=== PATIENT | female | born 1980 | race Caucasian/White ===

== ENCOUNTER 2020-06-02 15:39 | Emergency (ER) | payer BC, OTHER ==
[2020-06-02 17:07] LABS: Urine Blood NEGATIVE (NEG); Urine Glucose NEGATIVE (NEG); Urine Protein 1+ (NEG); Urine Specific Gravity >1.030 (1.005-1.030); Urine pH 5.5 (5.0-7.0)
--- NOTE | 2020-06-02 17:17 | RAD REPORT ---
EXAM DESCRIPTION: RAD - Chest Single View - 06/02/2020 5:11 pm CLINICAL HISTORY: CHEST PAIN Chest pain. COMPARISON: No comparisons FINDINGS: Portable technique limits examination quality. The lungs are grossly clear. The heart is normal in size. No displaced fractures. IMPRESSION: No acute intrathoracic process suspected.
[2020-06-02 17:19] LABS: Barbiturates NEGATIVE (NEGATIVE); Benzodiazepines NEGATIVE (NEGATIVE); Cocaine NEGATIVE (NEGATIVE); METHAMPHETAM POSITIVE (NEGATIVE); Methadone NEGATIVE (NEGATIVE); Opiates NEGATIVE (NEGATIVE); Phencyclidine NEGATIVE (NEGATIVE); THC Cannibis NEGATIVE (NEGATIVE)
[2020-06-02 17:26] LABS: Absolute Lymphocytes (CBC) 1.9 K/uL (0.7-4.9); Basophils % 0.6 % (0-1.3); Hematocrit 39.3 % (36.0-45.0); Lymphocytes % 25.8 % (15.3-44.8); MPV 7.9 fL (7.6-11.3); RBC Red Blood Cell Count 4.36 M/uL (3.86-4.86)
[2020-06-02] MEDS ORDERED: NA CHLORIDE 0.9% 1,000 ML ONE (18:22)
[2020-06-02 19:33] LABS: Protime INR 1.06
[2020-06-02 19:48] LABS: ALT/SGPT 15 U/L (12-78); AST/SGOT 14 U/L (15-37); Albumin 3.5 g/dL (3.4-5.0); Alkaline Phosphatase 77 U/L (45-117); BUN Blood Urea Nitrogen 7 mg/dL (7-18); Bicarbonate 24 mmol/L (21-32); Bilirubin Direct < 0.1 mg/dL (0-0.2); Bilirubin Total 0.3 mg/dL (0.2-1.0); Glucose Level 84 mg/dL (74-106); NT PRO-BNP 32 pg/mL (<125); Potassium 3.3 mmol/L (3.5-5.1); Protein, Total 6.9 g/dL (6.4-8.2); Sodium Level 142 mmol/L (136-145); Troponin (Emerg Dept Use Only) < 0.02 ng/mL (0.0-0.045)
[2020-06-02] MEDS ORDERED: CYCLOBENZAPRINE 10 MG TAB ONE (20:37)
[2020-06-02] MEDS ORDERED: KETOROLAC 30 MG/ML INJ ONE (20:37)
--- NOTE | 2020-06-02 22:29 | EDPHYS ---
Physician Documentation [facility] Name: Fariba Viera Age: 39 yrs Sex: Female : 1980 Arrival Date: 06/02/2020 Time: 15:47 Bed 18 Private MD: ED Physician Shin Escalante HPI: 06/02 16:35 This 39 yrs old Female presents to ER via Ambulatory with complaints of Chest pm1 pain. 16:35 The patient or guardian reports chest pain that is located primarily in the anterior pm1 aspect of right upper chest and anterior aspect of left upper chest. Onset: this morning. The pain does not radiate. Associated signs and symptoms: Pertinent positives: dizziness, one episode of diarrhea and vomiting this AM. Shortness of breath with chest pain this AM at onset. No further shortness of breath now, Pertinent negatives: cough, Fever. The chest pain is described as sharp. Duration: The patient or guardian reports a single episode, that is still ongoing. Modifying factors: The symptoms are alleviated by nothing. the symptoms are aggravated by palpation of area. Severity of pain: in the emergency department the pain is unchanged. The patient has not experienced similar symptoms in the past. The patient has not recently seen a physician. 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 - Social history:: Smoking status: Patient denies any tobacco usage or history of. Patient/guardian denies using alcohol, street drugs, tobacco products. ROS: 16:35 Constitutional: Negative for fever, chills, and weight loss, Neck: Negative for injury, pm1 pain, and swelling. 16:35 Respiratory: Negative for shortness of breath, cough, wheezing, and pleuritic chest pain, Back: Negative for injury and pain, MS/Extremity: Negative for injury and deformity, Skin: Negative for injury, rash, and discoloration. 16:35 Cardiovascular: Positive for chest pain, Negative for edema, palpitations. 16:35 Abdomen/GI: Positive for Abdominal cramping with diarrhea and vomiting this AM, Negative for constipation. 16:35 Neuro: Positive for dizziness. Exam: 16:35 Constitutional: This is a well developed, well nourished patient who is awake, alert, pm1 and in no acute distress. Head/Face: Normocephalic, atraumatic. Eyes: Pupils equal round and reactive to light, extra-ocular motions intact. Lids and lashes normal. Conjunctiva and sclera are non-icteric and not injected. Cornea within normal limits. Periorbital areas with no swelling, redness, or edema. ENT: Nares patent. No nasal discharge, no septal abnormalities noted. Tympanic membranes are normal and external auditory canals are clear. Oropharynx with no redness, swelling, or masses, exudates, or evidence of obstruction, uvula midline. Mucous membranes moist. Neck: Trachea midline, no thyromegaly or masses palpated, and no cervical lymphadenopathy. Supple, full range of motion without nuchal rigidity, or vertebral point tenderness. No Meningismus. 16:35 Cardiovascular: Regular rate and rhythm with a normal S1 and S2. No gallops, murmurs, or rubs. Normal PMI, no JVD. No pulse deficits. Respiratory: Lungs have equal breath sounds bilaterally, clear to auscultation and percussion. No rales, rhonchi or wheezes noted. No increased work of breathing, no retractions or nasal flaring. Abdomen/GI: Soft, non-tender, with normal bowel sounds. No distension or tympany. No guarding or rebound. No evidence of tenderness throughout. Back: No spinal tenderness. No costovertebral tenderness. Full range of motion. Skin: Warm, dry with normal turgor. Normal color with no rashes, no lesions, and no evidence of cellulitis. MS/ Extremity: Pulses equal, no cyanosis. Neurovascular intact. Full, normal range of motion. 16:35 Chest/axilla: Inspection: normal, Palpation: tenderness, that is moderate, of the anterior aspect of right upper chest and anterior aspect of left upper chest, that totally reproduces the patient's complaints. 16:35 Neuro: Exam negative for acute changes, focal neuro deficits, Orientation: is normal, Mentation: is normal, Motor: is normal, moves all fours, Sensation: is normal, no obvious gross deficits. Vital Signs: 15:59 BP 116 / 83; Pulse 110; Resp 18; Temp 98.4; Pulse Ox 100% ; Pain 8/10; ll1 17:22 BP 122 / 86; Pulse 100; Resp 18; Temp 97.6(TE); Pulse Ox 100% on R/A; mh5 18:30 BP 117 / 86; Pulse 89; Resp 13; Pulse Ox 100% ; ah 19:30 BP 123 / 70; Pulse 87; Resp 15; Pulse Ox 95% ; ah 20:30 BP 116 / 86; Pulse 84; Resp 17; Pulse Ox 96% ; ah 21:30 BP 128 / 88; Pulse 93; Resp 16; Pulse Ox 96% ; ah 22:15 BP 118 / 77; Pulse 75; Resp 16; Pulse Ox 96% ; ll1 22:45 BP 118 / 83; Pulse 84; Resp 17; Pain 4/10; ll1 MDM: 16:43 Patient medically screened. pm1 20:15 Data reviewed: vital signs. Data interpreted: Pulse oximetry: on room air is 100 %. pm1 Interpretation: normal. 22:27 Counseling: I had a detailed discussion with the patient and/or guardian regarding: the pm1 historical points, exam findings, and any diagnostic results supporting the discharge/admit diagnosis, lab results, radiology results, the need for outpatient follow up, to return to the emergency department if symptoms worsen or persist or if there are any questions or concerns that arise at home. 06/02 16:35 Order name: Basic Metabolic Panel; Complete Time: 20:14 pm1 06/02 16:35 Order name: CBC with Diff; Complete Time: 18:11 pm1 06/02 16:35 Order name: LFT's; Complete Time: 20:14 pm1 06/02 16:35 Order name: Magnesium; Complete Time: 20:14 pm1 06/02 16:35 Order name: NT PRO-BNP; Complete Time: 20:14 pm1 06/02 16:35 Order name: PT-INR; Complete Time: 19:41 pm1 06/02 16:35 Order name: Troponin (emerg Dept Use Only); Complete Time: 20:14 pm1 06/02 16:35 Order name: XRAY Chest (1 view); Complete Time: 17:21 pm1 06/02 16:36 Order name: UDS; Complete Time: 17:21 pm1 06/02 16:57 Order name: Urine Dipstick--Ancillary (enter results); Complete Time: 17:21 em1 06/02 16:57 Order name: Urine --Ancillary (enter results); Complete Time: 17:21 em06/02 16:35 Order name: EKG; Complete Time: 16:36 pm1 06/02 16:35 Order name: Cardiac monitoring; Complete Time: 17:20 pm06/02 16:35 Order name: EKG - Nurse/Tech; Complete Time: 17:20 pm06/02 16:35 Order name: IV Saline Lock; Complete Time: 17:45 pm1 06/02 16:35 Order name: Labs collected and sent; Complete Time: 17:20 pm06/02 16:35 Order name: O2 Per Protocol; Complete Time: 17:45 pm06/02 16:35 Order name: O2 Sat Monitoring; Complete Time: 17:45 pm06/02 16:36 Order name: Urine Dipstick-Ancillary (obtain specimen); Complete Time: 16:56 pm06/02 16:36 Order name: Urine Test (obtain specimen); Complete Time: 16:56 pm1 Administered Medications: 18:28 Drug: NS 0.9% 1000 ml Route: IV; Rate: 1000 ml; Site: right antecubital; 21:08 Follow up: Response: No adverse reaction; IV Status: Completed infusion 20:38 Drug: TORadol - Ketorolac 15 mg Route: IVP; Site: right antecubital; 21:57 Follow up: Response: No adverse reaction 20:38 Drug: Flexeril 10 mg Route: PO; 21:57 Follow up: Response: No adverse reaction Disposition: 06/03 05:44 Co-signature as Attending Physician, Shin Escalante MD I agree with the assessment and iftikhar plan of care. Disposition: 06/02/20 22:28 Discharged to Home. Impression: Chest pain, unspecified. - Condition is Stable. - Discharge Instructions: Nonspecific Chest Pain. - Prescriptions for Cyclobenzaprine 10 mg Oral Tablet - take 1 tablet by ORAL route every 8 hours As needed; 30 tablet. Diclofenac Sodium 75 mg Oral Tablet Sustained Release - take 1 tablet by ORAL route 2 times per day; 30 tablet. - Medication Reconciliation Form, Thank You Letter, Antibiotic Education, Prescription Opioid Use form. - Follow up: Emergency Department; When: As needed; Reason: Worsening of condition. Follow up: Private Physician; When: 2 - 3 days; Reason: Recheck today's complaints, Continuance of care, Re-evaluation by your physician. - Problem is new. - Symptoms have improved. Signatures: Dispatcher [employer] EDMS Shin Escalante MD MD cha Marinas, Patrick, NP SENIOR PRODUCT ANALYST pm1 Saira Rojas RN RN Jessica Green RN RN ll1 Corrections: (The following items were deleted from the chart) 06/02 22:46 22:28 06/02/2020 22:28 Discharged to Home. Impression: Chest pain, unspecified. ll1 Condition is Stable. Forms are Medication Reconciliation Form, Thank You Letter, Antibiotic Education, Prescription Opioid Use. Follow up: Emergency Department; When: As needed; Reason: Worsening of condition. Follow up: Private Physician; When: 2 - 3 days; Reason: Recheck today's complaints, Continuance of care, Re-evaluation by your physician. Problem is new. Symptoms have improved. pm1
--- NOTE | 2020-06-02 22:29 | ER ---
Nurse's Notes [facility] Name: Fariba Viera Age: 39 yrs Sex: Female : 1980 Arrival Date: 06/02/2020 Time: 15:47 Bed 18 Private MD: Diagnosis: Chest pain, unspecified Presentation: 06/02 15:59 Chief complaint: Patient states: Awoke at 6 am with urgent need to have diarrhea stool. ll1 Started having N/V, cold sweats, near syncope. Chest tightness and tenderness since. + lightheaded and blurred vision since. + dry mouth now. Coronavirus screen: Proceed with normal triage. Patient denies a cough. Patient denies shortness of breath or difficulty breathing. Patient denies measured and/or subjective temperature greater than 100.4F prior to today's visit. Patient denies travel on a cruise ship or to a country the [facility] currently lists as an affected area. Patient denies contact with known and/or suspected case of COVID-19. Ebola Screen: Patient denies travel to an Ebola-affected area in the 21 days before illness onset. Initial Sepsis Screen: Does the patient meet any 2 criteria? HR > 90 bpm. Risk Assessment: Do you want to hurt yourself or someone else? Patient reports no desire to harm self or others. Onset of symptoms was June 02, 2020. 15:59 Method Of Arrival: Ambulatory [facility] 15:59 Acuity: SONY 2 ss 22:01 Initial Sepsis Screen: Does the patient have a suspected source of infection? No. Patient's initial sepsis screen is negative. 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 - Social history:: Smoking status: Patient denies any tobacco usage or history of. Patient/guardian denies using alcohol, street drugs, tobacco products. Screenin:01 Abuse screen: Denies threats or abuse. Nutritional screening: No deficits noted. Tuberculosis screening: No symptoms or risk factors identified. Fall Risk None identified. Assessment: 16:45 General: Appears in no apparent distress. Behavior is calm, cooperative, appropriate ah for age. Pain: Complains of pain in chest Pain does not radiate. Neuro: Level of Consciousness is awake, alert, obeys commands, Oriented to person, place, time, situation, Appropriate for age Reports a syncopal episode. Cardiovascular: Reports chest pain, Capillary refill < 3 seconds Patient's skin is warm and dry. Respiratory: Airway is patent Respiratory effort is even, unlabored. GI: Reports diarrhea, nausea. Derm: Skin is intact, is healthy with good turgor. 17:45 Reassessment: Patient and/or family updated on plan of care and expected duration. Pain ah level reassessed. Patient is alert, oriented x 3, equal unlabored respirations, skin warm/dry/pink. 18:45 Reassessment: Patient and/or family updated on plan of care and expected duration. Pain ah level reassessed. Patient is alert, oriented x 3, equal unlabored respirations, skin warm/dry/pink. 19:30 Reassessment: Patient and/or family updated on plan of care and expected duration. Pain ah level reassessed. Patient is alert, oriented x 3, equal unlabored respirations, skin warm/dry/pink. Pt tolerated fluids well. She states that she feels a little bit better. 20:30 Reassessment: Patient and/or family updated on plan of care and expected duration. Pain ah level reassessed. Patient is alert, oriented x 3, equal unlabored respirations, skin warm/dry/pink. Pt continues to have pain. Provider orders medications. Toradol and flexeril given at this time. No other needs voiced at this time. 21:30 Reassessment: No changes from previously documented assessment. Patient and/or family ll1 updated on plan of care and expected duration. Pain level reassessed. Patient is alert, oriented x 3, equal unlabored respirations, skin warm/dry/pink. 23:05 Pain: Pain began gradually. ll1 Vital Signs: 15:59 BP 116 / 83; Pulse 110; Resp 18; Temp 98.4; Pulse Ox 100% ; Pain 8/10; ll1 17:22 BP 122 / 86; Pulse 100; Resp 18; Temp 97.6(TE); Pulse Ox 100% on R/A; mh5 18:30 BP 117 / 86; Pulse 89; Resp 13; Pulse Ox 100% ; ah 19:30 BP 123 / 70; Pulse 87; Resp 15; Pulse Ox 95% ; ah 20:30 BP 116 / 86; Pulse 84; Resp 17; Pulse Ox 96% ; ah 21:30 BP 128 / 88; Pulse 93; Resp 16; Pulse Ox 96% ; ah 22:15 BP 118 / 77; Pulse 75; Resp 16; Pulse Ox 96% ; ll1 22:45 BP 118 / 83; Pulse 84; Resp 17; Pain 4/10; ll1 ED Course: 15:47 Patient arrived in ED. fj1 16:02 Triage completed. ll1 16:03 Arm band placed on Patient notified of wait time. ll1 16:34 Derick Downs NP is PHCP. pm1 16:35 Shin Escalante MD is Attending Physician. pm1 16:52 Saira Rojas, RN is Primary Nurse. ah 17:11 XRAY Chest (1 view) In Process Unspecified. EDCA 17:18 Initial lab(s) drawn, by ct, sent to lab. Urine collected: clean catch specimen, 5 cloudy. Inserted saline lock: 22 gauge in left antecubital area, using aseptic technique. Blood collected. IV discontinued, Pressure dressing applied. 17:20 Basic Metabolic Panel Sent. 5 17:20 CBC with Diff Sent. 5 17:20 LFT's Sent. 5 17:20 Magnesium Sent. 5 17:20 NT PRO-BNP Sent. 5 17:20 PT-INR Sent. 5 17:21 Troponin (emerg Dept Use Only) Sent. [facility] 18:28 Inserted saline lock: 22 gauge in right antecubital area, using aseptic technique. 22:01 Patient has correct armband on for positive identification. Placed in gown. Bed in low ah position. Call light in reach. Side rails up X 1. Pulse ox on. NIBP on. 22:45 No provider procedures requiring assistance completed. IV discontinued, intact, ll1 bleeding controlled, No redness/swelling at site. Pressure dressing applied. Patient maintains SpO2 saturation greater than 95% on room air. Administered Medications: 18:28 Drug: NS 0.9% 1000 ml Route: IV; Rate: 1000 ml; Site: right antecubital; 21:08 Follow up: Response: No adverse reaction; IV Status: Completed infusion 20:38 Drug: TORadol - Ketorolac 15 mg Route: IVP; Site: right antecubital; 21:57 Follow up: Response: No adverse reaction 20:38 Drug: Flexeril 10 mg Route: PO; 21:57 Follow up: Response: No adverse reaction Outcome: 22:28 Discharge ordered by MD. pm1 22:46 Patient left the ED. [facility] 22:46 Discharged to home via wheelchair. ll1 22:46 Condition: stable 22:46 Discharge instructions given to patient, Instructed on discharge instructions, follow up and referral plans. no drinking with medication, no driving heavy equipment, medication usage, Demonstrated understanding of instructions, follow-up care, medications, Prescriptions given X 2. Signatures: Dispatcher [employer] EDMS Anne Jewell RN RN Derick Downs NP RECEIVABLES SPECIALIST 1 Lenka Liu 5 Nav Nash 1 Saira Rojas RN RN Jessica Green RN RN ll1 Corrections: (The following items were deleted from the chart) 16:16 15:59 Acuity: SONY 3 1 18:13 18:05 BP 112 / 57; Pulse 113bpm; Resp 18bpm; Pulse Ox 96%; Temp 99.0F; ah 22:00 20:30 Reassessment: Patient and/or family updated on plan of care and expected ah duration. Pain level reassessed. Patient is alert, oriented x 3, equal unlabored respirations, skin warm/dry/pink.
[2020-06-02 23:18] VITALS: TEMP 97.6
[2020-06-02 23:22] VITALS: O2SAT 96
[2020-06-02 23:40] VITALS: BP 118/77
--- NOTE | 2020-06-03 12:11 | EKG ---
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
== END 2020-06-02 22:46 | disposition home or self-care (01) ==
LOC: ER 15:39
DX: R07.9 Chest pain, unspecified (principal); Z91.040 Latex allergy status
CPT/HCPCS: 96361; 93005; 85025; 80048; 36415; 83735; 81025; 85610; 80076; 80307 ×8; 81003; 84484; 83880; 71045; 96374; 99284; J7030

== ENCOUNTER 2022-10-26 20:30 | Observation (INO) | payer BC ==
[2022-10-26 21:21] LABS: Hematocrit 36.1 % (36.0-45.0); Lymphocytes % 21.7 % (15.3-44.8); MCV 88.5 fL (80-100); MPV 7.4 fL (7.6-11.3); RBC Red Blood Cell Count 4.08 M/uL (3.86-4.86)
[2022-10-26] MEDS ORDERED: ASPIRIN 81 MG CHEWABLE TABLET ONE (21:23)
[2022-10-26] MEDS ORDERED: NA CHLORIDE 0.9% 500 ML ONE (21:23)
[2022-10-26] MEDS ORDERED: NA CHLORIDE 0.9% 1,000 ML ONE (21:23)
[2022-10-26 21:36] LABS: Potassium 3.3 mmol/L (3.5-5.1); Troponin High Sensitivity 6.5 pg/mL (<58.9)
[2022-10-26 21:38] LABS: Urine Blood Trace-lysed (Negative); Urine Glucose Negative (Negative); Urine Protein Trace (Negative); Urine Specific Gravity >=1.030 (1.005-1.030); Urine pH 5.5 (5.0-7.0)
--- NOTE | 2022-10-26 21:51 | ER ---
Nurse's Notes [facility] Name: Fariba Viera Age: 41 yrs Sex: Female : 1980 Arrival Date: 10/26/2022 Time: 20:36 Bed 18 Private MD: Diagnosis: Chest pain, unspecified;Tachycardia, unspecified;Hypokalemia Presentation: 10/26 20:46 Chief complaint: Patient states: chest pain many hours, started midline chest but now jh5 is moving into the left chest and started moving down into left and my left arm feels heavy. Coronavirus screen: Vaccine status: Patient reports receiving the 2nd dose of the covid vaccine. Client denies travel out of the [place] in the last 14 days. Ebola Screen: Patient negative for fever greater than or equal to 101.5 degrees Fahrenheit, and additional compatible Ebola Virus Disease symptoms Patient denies exposure to infectious person. Patient denies travel to an Ebola-affected area in the 21 days before illness onset. Initial Sepsis Screen: Does the patient meet any 2 criteria? No. Patient's initial sepsis screen is negative. Does the patient have a suspected source of infection? No. Patient's initial sepsis screen is negative. Risk Assessment: Do you want to hurt yourself or someone else? Patient reports no desire to harm self or others. 20:46 Method Of Arrival: Ambulatory [facility] 20:46 Acuity: SONY 3 [facility] 10/27 00:56 Onset of symptoms was October 27, 2022. kd3 Triage Assessment: 10/26 20:49 General: Appears uncomfortable, well groomed, well developed, Behavior is calm, 5 cooperative, appropriate for age. Pain: Complains of pain in chest and left arm. Cardiovascular: Reports chest pain. 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 - Social history:: Smoking status: Patient denies any tobacco usage or history of. - Family history:: not pertinent. Screenin/07 00:55 Abuse screen: Denies threats or abuse. Denies injuries from another. Nutritional kd3 screening: No deficits noted. Tuberculosis screening: No symptoms or risk factors identified. Fall Risk IV access (20 points). Assessment: 00:56 Pain: Pain does not radiate. Pain began gradually. Neuro: Level of Consciousness is kd3 awake, alert, obeys commands, Oriented to person, place, time, situation. Cardiovascular: Patient's skin is warm and dry. 00:56 General: Appears in no apparent distress. Behavior is calm, cooperative. kd3 04:07 Reassessment: No changes from previously documented assessment. Patient and/or family kd3 updated on plan of care and expected duration. Pain level reassessed. Patient is alert, oriented x 3, equal unlabored respirations, skin warm/dry/pink. General: Appears sleeping in bed. Behavior is calm, cooperative. Vital Signs: 10/26 20:46 BP 136 / 97; Pulse 104; Resp 16; Temp 98.6; Pulse Ox 100% ; Weight 91.63 kg; Height 5 [facility] ft. 4 in. (162.56 cm); 12 00:23 BP 138 / 98; Pulse 78; Resp 16; Pulse Ox 99% on R/A; kd3 00:56 BP 117 / 85; Pulse 68; Resp 13; Pulse Ox 98% on R/A; kd3 04:07 BP 99 / 55; Pulse 69; Resp 13; Pulse Ox 99% on R/A; kd3 05:57 BP 113 / 67; Pulse 64; Resp 15; Pulse Ox 98% on R/A; kd3 12/ 20:46 Body Mass Index 34.67 (91.63 kg, 162.56 cm) [facility] ED Course: 10/26 20:36 Patient arrived in ED. bp1 20:49 Triage completed. jh5 20:49 Arm band placed on right wrist. jh5 21:00 Initial lab(s) drawn, by fl, sent to lab. EKG done, by ED staff, reviewed by Shin Escalante MD. Inserted saline lock: 20 gauge in right antecubital area, using aseptic technique. Blood collected. Patient maintains SpO2 saturation greater than 95% on room air. 21:01 Shin Escalante MD is Attending Physician. [facility] 21:16 Mariama Coppola, RN is Primary Nurse. kd3 21:31 Troponin HS Sent. kd3 21:31 Basic Metabolic Panel Sent. kd3 21:50 Roland Paredes MD is Hospitalizing Provider. [facility] 21:51 XRAY Chest (1 view) In Process Unspecified. EDMS 12 00:55 Patient has correct armband on for positive identification. Client placed on continuous kd3 cardiac and pulse oximetry monitoring. NIBP monitoring applied. 00:55 No provider procedures requiring assistance completed. kd3 05:57 Patient admitted, IV remains in place. kd3 Administered Medications: 10/26 21:31 Drug: Aspirin Chewable Tablet 162 mg Route: PO; kd3 10/27 00:59 Follow up: Response: No adverse reaction kd3 10/26 21:31 Drug: NS 0.9% 1000 ml Route: IV; Rate: 125 ml/hr; Site: right antecubital; kd3 10/27 00:59 Follow up: IV Status: Infusion continued kd3 10/26 21:31 Drug: NS 0.9% 500 ml Route: IV; Rate: bolus; Site: right antecubital; kd3 10/27 00:59 Follow up: IV Status: Completed infusion kd3 10/26 23:04 Drug: Lovenox (enoxaparin) 1 mg/kg Route: Sub-Q; Site: left lower abdomen; kd3 12 00:59 Follow up: Response: No adverse reaction kd3 10/26 23:04 Drug: Pepcid (famotidine) 20 mg Route: IVP; Site: right antecubital; kd3 12 00:59 Follow up: Response: No adverse reaction kd3 12 23:04 Drug: morphine 4 mg Route: IVP; Infused Over: 4 mins; Site: right antecubital; kd3 10/27 00:58 Follow up: Response: No adverse reaction; Pain is decreased kd3 10/26 23:04 Drug: Zofran (Ondansetron) 4 mg Route: IVP; Site: right antecubital; kd3 12 00:58 Follow up: Response: No adverse reaction kd3 00:07 Drug: Potassium Effervescent Tablet 50 mEq Route: PO; kd3 00:58 Follow up: Response: No adverse reaction kd3 00:11 Drug: Lopressor (metoprolol TARTRATE) 50 mg Route: PO; kd3 00:59 Follow up: Response: No adverse reaction; Blood pressure is lowered kd3 Medication: 00:56 VIS not applicable for this client. kd3 Outcome: 10/26 21:51 Decision to Hospitalize by Provider. iftikhar 10/27 05:56 Admitted to ER Hold. Please see [facility] for further documentation. kd3 Condition: stable Discharge instructions given to patient, family, Instructed on the need for admit, Demonstrated understanding of instructions, follow-up care. 10/29 12:20 Patient left the ED. jl7 Signatures: Dispatcher [employer] EDShin Adam MD MD cha Leal, Jahala RN RN jl7 Neha Oviedo Jessica, RN RN jh5 Mariama Coppola RN RN kd3
--- NOTE | 2022-10-26 21:51 | EDPHYS ---
Physician Documentation [facility] Name: Fariba Viera Age: 41 yrs Sex: Female : 1980 Arrival Date: 10/26/2022 Time: 20:36 Bed 18 Private MD: ED Physician Shin Escalante HPI: 10/26 21:45 This 41 yrs old Female presents to ER via Ambulatory with complaints of Chest iftikhar Pain > 30 y/o. 21:45 The patient or guardian reports chest pain that is located primarily in the substernal iftikhar area. Onset: today. The pain radiates to both arms. Associated signs and symptoms: Pertinent positives: nausea, shortness of breath. The chest pain is described as a pressure. Modifying factors: The symptoms are alleviated by nothing. the symptoms are aggravated by movement, walking. Severity of pain: At its worst the pain was mild moderate in the emergency department the pain has resolved. The patient has not experienced similar symptoms in the past. 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 - Social history:: Smoking status: Patient denies any tobacco usage or history of. - Family history:: not pertinent. ROS: 21:45 Constitutional: Negative for fever, chills, and weight loss, Eyes: Negative for injury, iftikhar pain, redness, and discharge, ENT: Negative for injury, pain, and discharge, Neck: Negative for injury, pain, and swelling, Abdomen/GI: Negative for abdominal pain, nausea, vomiting, diarrhea, and constipation, Back: Negative for injury and pain, : Negative for injury, bleeding, discharge, and swelling, MS/Extremity: Negative for injury and deformity, Skin: Negative for injury, rash, and discoloration, Neuro: Negative for headache, weakness, numbness, tingling, and seizure, Psych: Negative for depression, anxiety, suicide ideation, homicidal ideation, and hallucinations, Allergy/Immunology: Negative for hives, rash, and allergies, Endocrine: Negative for neck swelling, polydipsia, polyuria, polyphagia, and marked weight changes, Hematologic/Lymphatic: Negative for swollen nodes, abnormal bleeding, and unusual bruising. 21:45 Cardiovascular: Positive for chest pain, of the chest. 21:45 Respiratory: Positive for shortness of breath, at rest. Exam: 21:45 Constitutional: This is a well developed, well nourished patient who is awake, alert, iftikhar and in no acute distress. Head/Face: Normocephalic, atraumatic. Eyes: Pupils equal round and reactive to light, extra-ocular motions intact. Lids and lashes normal. Conjunctiva and sclera are non-icteric and not injected. Cornea within normal limits. Periorbital areas with no swelling, redness, or edema. ENT: Nares patent. No nasal discharge, no septal abnormalities noted. Tympanic membranes are normal and external auditory canals are clear. Oropharynx with no redness, swelling, or masses, exudates, or evidence of obstruction, uvula midline. Mucous membranes moist. Neck: Trachea midline, no thyromegaly or masses palpated, and no cervical lymphadenopathy. Supple, full range of motion without nuchal rigidity, or vertebral point tenderness. No Meningismus. Chest/axilla: Normal chest wall appearance and motion. Nontender with no deformity. No lesions are appreciated. Cardiovascular: Regular rate and rhythm with a normal S1 and S2. No gallops, murmurs, or rubs. Normal PMI, no JVD. No pulse deficits. Respiratory: Lungs have equal breath sounds bilaterally, clear to auscultation and percussion. No rales, rhonchi or wheezes noted. No increased work of breathing, no retractions or nasal flaring. Abdomen/GI: Soft, non-tender, with normal bowel sounds. No distension or tympany. No guarding or rebound. No evidence of tenderness throughout. Back: No spinal tenderness. No costovertebral tenderness. Full range of motion. Skin: Warm, dry with normal turgor. Normal color with no rashes, no lesions, and no evidence of cellulitis. MS/ Extremity: Pulses equal, no cyanosis. Neurovascular intact. Full, normal range of motion. Neuro: Awake and alert, GCS 15, oriented to person, place, time, and situation. Cranial nerves II-XII grossly intact. Motor strength 5/5 in all extremities. Sensory grossly intact. Cerebellar exam normal. Normal gait. Psych: Awake, alert, with orientation to person, place and time. Behavior, mood, and affect are within normal limits. 21:45 ECG was reviewed by the Attending Physician. Vital Signs: 20:46 BP 136 / 97; Pulse 104; Resp 16; Temp 98.6; Pulse Ox 100% ; Weight 91.63 kg; Height 5 jh5 ft. 4 in. (162.56 cm); 10/27 00:23 BP 138 / 98; Pulse 78; Resp 16; Pulse Ox 99% on R/A; kd3 00:56 BP 117 / 85; Pulse 68; Resp 13; Pulse Ox 98% on R/A; kd3 04:07 BP 99 / 55; Pulse 69; Resp 13; Pulse Ox 99% on R/A; kd3 05:57 BP 113 / 67; Pulse 64; Resp 15; Pulse Ox 98% on R/A; kd3 10/26 20:46 Body Mass Index 34.67 (91.63 kg, 162.56 cm) 5 MDM: 10/26 21:10 Patient medically screened. iftikhar 21:47 Differential diagnosis: abnormal EKG, acute myocardial infarction, coronary artery iftikhar disease congestive heart failure Cholelithiasis esophagitis, gastroesophageal reflux disease (GERD), hiatal hernia, pancreatitis, pulmonary embolus, stable angina, thoracic aortic disection, unstable angina. HEART Score: History: Slightly Suspicious (0), ECG: Non specific repolarization disturbance / LBTB / PM (1), Age: < or = 45 years (0), Risk Factors: > or = 3 Risk factors for atherosclerotic disease (2), [Hypercholesterolemia] [+ Family HX] [Obesity] Troponin: < or = 1 x Normal Limit (0). The patient was given aspirin in the Emergency Department. The patient's deep vein thrombosis risk score was calculated as follows: Total Score: 0. This patient was found to be at low risk for a deep vein thrombosis by using the Well's assessment criteria. The patient's pulmonary embolism risk score was calculated as follows: the patients heart rate is greater than 100 beats per minute (1.5 Pts) Total Score: 0-2 points. This patient was found to be at low risk for a pulmonary embolism by using the Well's assessment criteria. NATALIE Risk Score: 1 - Three or more CAD risk factors, TOTAL SCORE = 1. Data reviewed: vital signs, nurses notes, lab test result(s), EKG, radiologic studies, plain films. Data interpreted: bus monitor: rate is 104 beats/min, rhythm is regular, Pulse oximetry: on room air is 100 %. Test interpretation: by ED physician or midlevel provider: ECG, plain radiologic studies. Counseling: I had a detailed discussion with the patient and/or guardian regarding: the historical points, exam findings, and any diagnostic results supporting the discharge/admit diagnosis, lab results, radiology results, the need for further work-up and treatment in the hospital. 10/26 20:50 Order name: Basic Metabolic Panel; Complete Time: 22:53 [facility] 10/26 20:50 Order name: CBC with Diff; Complete Time: 21:44 [facility] 10/26 20:50 Order name: Troponin HS; Complete Time: 22:53 [facility] 10/26 21:38 Order name: Urine Dipstick-Ancillary; Complete Time: 21:44 [facility] 10/26 22:15 Order name: DD; Complete Time: 22:53 [facility] 10/26 22:16 Order name: SARS RAPID az1 10/26 22:26 Order name: NT PRO-BNP; Complete Time: 22:53 [facility] 10/26 22:32 Order name: Urine --Ancillary (enter results); Complete Time: 22:53 2 10/27 05:19 Order name: Troponin High Sensitivity [facility] 10/27 05:29 Order name: Comprehensive Metabolic Panel [facility] 10/27 05:29 Order name: Lipid Profile [facility] 10/27 05:29 Order name: T4 Free [facility] 10/27 05:29 Order name: Thyroid Stimulating Hormone [facility] 10/26 20:50 Order name: XRAY Chest (1 view); Complete Time: 22:26 [facility] 10/26 22:26 Order name: CT Chest For PE Angio iftikhar 10/26 22:53 Order name: US Extremity Venous W Compression Fabricio iftikhar 10/27 08:08 Order name: US EDNC 10/27 09:04 Order name: Troponin High Sensitivity [facility] 10/27 13:06 Order name: CT [facility] 10/28 02:59 Order name: Comprehensive Metabolic Panel [facility] 10/28 10:38 Order name: NM [facility] 10/29 05:53 Order name: Basic Metabolic Panel [facility] 10/26 20:50 Order name: EKG; Complete Time: 20:51 [facility] 10/26 20:50 Order name: Cardiac monitoring; Complete Time: 21:32 [facility] 10/26 20:50 Order name: EKG - Nurse/Tech; Complete Time: 20:57 [facility] 10/26 20:50 Order name: IV Saline Lock; Complete Time: 21:19 [facility] 10/26 20:50 Order name: Labs collected and sent; Complete Time: 21:19 [facility] 10/26 20:50 Order name: O2 Per Protocol; Complete Time: 21:32 [facility] 10/26 20:50 Order name: O2 Sat Monitoring; Complete Time: 21:32 [facility] 10/26 21:02 Order name: Urine Dipstick-Ancillary (obtain specimen); Complete Time: 21:38 iftikhar EC:45 Rate is 98 beats/min. Rhythm is regular. QRS [place] is Normal. SC interval is normal. QRS iftikhar interval is normal. QT interval is normal. No Q waves. T waves are Normal. No ST changes noted. Clinical impression: Normal ECG and No evidence of ischemia. Interpreted by me. Reviewed by me. Administered Medications: 21:31 Drug: Aspirin Chewable Tablet 162 mg Route: PO; 10/27 00:59 Follow up: Response: No adverse reaction 10/26 21:31 Drug: NS 0.9% 1000 ml Route: IV; Rate: 125 ml/hr; Site: right antecubital; 10/27 00:59 Follow up: IV Status: Infusion continued 10/26 21:31 Drug: NS 0.9% 500 ml Route: IV; Rate: bolus; Site: right antecubital; 10/27 00:59 Follow up: IV Status: Completed infusion 10/26 23:04 Drug: Lovenox (enoxaparin) 1 mg/kg Route: Sub-Q; Site: left lower abdomen; 10/27 00:59 Follow up: Response: No adverse reaction 10/26 23:04 Drug: Pepcid (famotidine) 20 mg Route: IVP; Site: right antecubital; 10/27 00:59 Follow up: Response: No adverse reaction 10/26 23:04 Drug: morphine 4 mg Route: IVP; Infused Over: 4 mins; Site: right antecubital; 10/27 00:58 Follow up: Response: No adverse reaction; Pain is decreased kd3 10/26 23:04 Drug: Zofran (Ondansetron) 4 mg Route: IVP; Site: right antecubital; kd3 10/27 00:58 Follow up: Response: No adverse reaction kd3 00:07 Drug: Potassium Effervescent Tablet 50 mEq Route: PO; kd3 00:58 Follow up: Response: No adverse reaction kd3 00:11 Drug: Lopressor (metoprolol TARTRATE) 50 mg Route: PO; kd3 00:59 Follow up: Response: No adverse reaction; Blood pressure is lowered kd3 Disposition Summary: 10/26/22 21:51 Hospitalization Ordered Hospitalization Status: Observation iftikhar Provider: Roland Paredes cha Condition: Stable iftikhar Problem: new iftikhar Symptoms: have improved iftikhar Bed/Room Type: Standard iftikhar Location: [facility] ER HOLD(10/26/22 21:53) bb Room Assignment: ERHOLD-(10/26/22 21:53) bb Diagnosis - Chest pain, unspecified iftikhar - Tachycardia, unspecified iftikhar - Hypokalemia iftikhar Forms: - Medication Reconciliation Form iftikhar - SBAR form iftikhar Signatures: Dispatcher [employer] EDMS Shin Escalante MD MD cha Ballard, Brenda RN RN Akosua Hines RN RN jh5 Mariama Coppola RN RN kd3 Corrections: (The following items were deleted from the chart) 10/26 21:53 21:51 Telemetry/MedSurg (observation) iftikhar bb 21:53 21:51 iftikhar bb 22:26 22:16 PROBNP+C.LAB.BRZ ordered. EDMS EDMS
--- NOTE | 2022-10-26 22:04 | RAD REPORT ---
EXAM DESCRIPTION: Joycelyn Single View10/26/2022 9:49 pm CLINICAL HISTORY: Chest pain COMPARISON: 2019 FINDINGS: The lungs appear clear of acute infiltrate. The heart is normal size IMPRESSION: No acute abnormalities displayed
[2022-10-26] MEDS ORDERED: FAMOTIDINE 20 MG/2 ML VIAL IV ONE (22:26)
[2022-10-26] MEDS ORDERED: ENOXAPARIN 100 MG/ML SYR SQ ONE (22:26)
[2022-10-26] MEDS ORDERED: ONDANSETRON 4 MG/2 ML VIAL ONE (22:26)
[2022-10-26] MEDS ORDERED: METOPROLOL TAR 50 MG TAB ONE (22:26)
[2022-10-26] MEDS ORDERED: MORPHINE 4 MG/ML SYR ONE (22:39)
[2022-10-26 22:42] LABS: Urine Specific Gravity/Preg >1.030 (1.005-1.030)
--- NOTE | 2022-10-26 23:10 | P.HP ---
Certification for Inpatient Patient admitted to: Observation With expected LOS: <2 Midnights Patient will require the following post-hospital care: None Practitioner: I am a practitioner with admitting privileges, knowledge of patient current condition, hospital course, and medical plan of care. Services: Services provided to patient in accordance with Admission requirements found in Title 42 Section 412.3 of the Code of Federal Regulations Patient History Date of Service: 10/26/22 Reason for admission: Chest pain History of Present Illness: 41-year-old female with history of GERD, hyperlipidemia presents the emergency department for chest pain. She reports the pain began earlier in the day while she was relaxing pain is described as tightness/aching across the chest and radiating down the left arm. She has a strong family history for heart disease at a young age. Her initial high-sensitivity troponin was 6.5. EKG was without STEMI criteria chest x-ray was unremarkable. ED provider reached out for admission for ACS rule out. D-dimer was added after further discussion with patient which was positive, CT PE protocol currently pending. - Past Medical/Surgical History -: Hyperlipidemia -: GERD -: Tubal ligation Psychosocial/ Personal History: Patient lives at home with family - Family History Father -: Heart disease (At a young age), Cancer - Social History Smoking Status: Never smoker Alcohol use: No CD- Drugs: No Caffeine use: Yes Place of Residence: Home Review of Systems 10-point ROS is otherwise unremarkable Cardiovascular: Chest Pain, Light Headedness Physical Examination - Physical Exam General: Alert, In no apparent distress, Oriented x3 HEENT: Atraumatic, PERRLA, Mucous membr. moist/pink, EOMI, Sclerae nonicteric Neck: Supple, 2+ carotid pulse no bruit, No LAD, Without JVD or thyroid abnormality Respiratory: Clear to auscultation bilaterally, Normal air movement Cardiovascular: Regular rate/rhythm, Normal S1 S2 Gastrointestinal: Normal bowel sounds, No tenderness Musculoskeletal: No tenderness Integumentary: No rashes Neurological: Normal speech, Normal strength at 5/5 x4 extr, Normal tone, Normal affect - Studies Laboratory Data (last 24 hrs) 10/26/22 21:00: WBC 9.10, Hgb 12.4, Hct 36.1, Plt Count 377 10/26/22 21:00: Sodium 136, Potassium 3.3 L, BUN 7, Creatinine 1.06, Glucose 97 Assessment and Plan - Plan Assessment: Chest pain rule out ACS/PE GERD Hyperlipidemia Plan: Chest pain rule out ACS/PE: Trend troponins, monitor on telemetry, cardiology consult in place. Patient given aspirin/therapeutic Lovenox in ED. CT PE protocol pending. GERD: Continue Protonix, as needed Tums. Hyperlipidemia: Continue home med. DVT PPX: Lovenox Code status: Full Discharge Plan: Home Plan to discharge in: 24 Hours - Advance Directives Does patient have a Living Will: No Does patient have a Durable POA for Healthcare: No - Code Status/Comfort Care Code Status Assessed: Yes (Full code) Critical Care: No Time Spent Managing Pts Care (In Minutes): 55
[2022-10-26] MEDS ORDERED: POTASSIUM 25 MEQ EFFERV TAB ONE (23:48)
[2022-10-27 00:56] LABS: SARS-CoV-2 Antigen Rapid Res Negative (Negative)
[2022-10-27] MEDS ORDERED: ONDANSETRON 4 MG/2 ML VIAL IV PRN (04:10)
[2022-10-27] MEDS ORDERED: CALCIUM CARBONATE CHEW 500MG TAB PO PRN (04:10)
[2022-10-27 05:28] LABS: Bilirubin Total 0.6 mg/dL (0.2-1.0); Potassium 4.6 mmol/L (3.5-5.1); Protein, Total 6.6 g/dL (6.4-8.2); Thyroid Stimulating Hormone 1.88 uIU/mL (0.360-3.740)
[2022-10-27] MEDS ORDERED: INFLUENZA VACCINE (for 6+ mo) 0.5 ML DOSE IMVAC ONE ×2 (08:00→11:06)
--- NOTE | 2022-10-27 08:08 | RAD REPORT ---
EXAM DESCRIPTION: USExtrem Venous W Compress Bil10/26/2022 11:31 pm CLINICAL HISTORY: Leg pain COMPARISON: none FINDINGS: The common femoral, superficial femoral, popliteal and posterior tibial veins bilaterally are compressible and demonstrate augmentation. Doppler demonstrates good flow. Grayscale, color and spectral analysis performed on all vessels IMPRESSION: No evidence of deep venous thrombosis involving either lower extremity.
[2022-10-27] MEDS ORDERED: PANTOPRAZOLE 40MG TABLET PO ONE (08:37)
[2022-10-27] MEDS ORDERED: ASPIRIN 81 MG CHEWABLE TABLET ONE (08:37)
[2022-10-27] MEDS ORDERED: ENOXAPARIN 40 MG/0.4 ML SQ ONE (08:38)
[2022-10-27] MEDS: ENOXAPARIN 40 MG/0.4 ML SQ SCH (08:45)
[2022-10-27] MEDS: ASPIRIN EC 81 MG TAB PO SCH (08:45)
[2022-10-27] MEDS: PANTOPRAZOLE 40MG TABLET PO SCH (08:45)
[2022-10-27] MEDS ORDERED: KETOROLAC 30 MG/ML INJ IV ONE (10:49)
[2022-10-27] MEDS ORDERED: CYCLOBENZAPRINE 10 MG TAB ONE (11:06)
[2022-10-27] MEDS ORDERED: KETOROLAC 30 MG/ML INJ ONE (11:06)
[2022-10-27] MEDS: CYCLOBENZAPRINE 10 MG TAB PO PRN (11:34)
--- NOTE | 2022-10-27 13:05 | RAD REPORT ---
EXAM DESCRIPTION: CT - Chest For Pe Angio - 10/26/2022 11:52 pm CLINICAL HISTORY: Cp. COMPARISON: None. TECHNIQUE: CTA of the chest was performed following intravenous administration of iodinated contrast . Axial soft tissue and lung window, and coronal and sagittal soft tissue window reconstructions were created and sent to PACS. 3D postprocessing was performed on an independent workstation, with images sent to PACS for subsequen t review. This exam was performed according to our departmental dose-optimization program, which includes autom ated exposure control, adjustment of the mA and/or kV according to patient size and/or use of iterati ve reconstruction technique. FINDINGS: Vascular: The pulmonary arteries are well-opacified to the segmental level. No CT evidence of acute pulmonary thromboembolism. No evidence of aortic aneurysm or dissection. Lungs and pleura: Left apex groundglass nodule measures 0.4 cm. No routine follow-up imaging is recom mended per Fleischner Society Guidelines. No pulmonary consolidation. No pleural effusion. No pneumot horax. Mediastinum and neck: No mediastinal lymphadenopathy by CT size criteria. Unremarkable appearance of the thyroid gland. Cardiac: No cardiomegaly or pericardial effusion. Abdomen: No significant upper abdominal abnormality identified. Musculoskeletal: No concerning osseous abnormality. IMPRESSION: 1. No CTA evidence of acute pulmonary thromboembolism. 2. No acute findings. Electronically signed by: Kerri Thibodeaux MD 10/26/2022 11:24 PM HOSPITALITY JOB TITLES Due to temporary technical issues with the PACS/Fluency reporting system, reports are being signed by the in house radiologists without review as a courtesy to insure prompt reporting. The interpreting radiologist is fully responsible for the content of the report.
[2022-10-27] MEDS: ATORVASTATIN 40 MG TAB PO SCH (21:00)
[2022-10-27] MEDS ORDERED: ATORVASTATIN 20 MG TAB ONE (21:28)
--- NOTE | 2022-10-27 21:39 | P.PN ---
Date of Service: 10/27/22 Subjective: no acute events overnight chest pain with some improvement, not resolved no new/worsening symptoms pain substernal, radiates to both arms ROS: A complete review of systems was performed and is negative except as mentioned above Physical Exam: Gen: NAD, AOx3 HEENT: normal conjunctiva, sclera anicteric CV: regular rate & rhythm, no edema Pulm: non-labored respirations, clear bilaterally Abd: soft, non-tender, non-distended MSK: chest pain reproducible with use of bilateral pectoralis muscles Skin: no rashes, no lesions Neuro: normal speech, normal affect, moves all extremities vitals reviewed Problem List Chest pain rule out ACS/PE GERD Hyperlipidemia trop negative x 2, continue to trend cardiology consulted - recommend stress test in AM echo ordered suspect pain is MSK in origin, reproducible when flexing pectoralis muscles and palpation +family history of CAD aspirin, statin continue home protonix ekg without ischemic changes VTE: lovenox Code: full Dispo: home, tomorrow after stress test Time Spent Managing Pts Care (In Minutes): 35
[2022-10-28 02:59] LABS: Bilirubin Total 0.3 mg/dL (0.2-1.0); Potassium 4.2 mmol/L (3.5-5.1); Protein, Total 6.6 g/dL (6.4-8.2)
--- NOTE | 2022-10-28 05:46 | EKG ---
Test Date: 2022-10-26 Test Time: 20:55:22 Sail Cutter: MEASUREMENT RESULTS: Intervals: Rate: 98 MI: 168 QRSD: 76 QT: 314 QTc: 400 Elwin: P: 70 MI: 168 QRS: 59 T: 53 INTERPRETIVE STATEMENTS: Normal sinus rhythm Normal ECG Compared to ECG 06/02/2020 16:09:28 Sinus tachycardia no longer present Myocardial infarct finding no longer present Electronically Signed On 10-28-22 05:44:47 VEHICLE DISMANTLER by Aaron Birmingham
[2022-10-28] MEDS ORDERED: PANTOPRAZOLE 40MG TABLET PO ONE (05:57)
[2022-10-28] MEDS: PANTOPRAZOLE 40MG TABLET PO SCH (06:03)
[2022-10-28 06:39] VITALS: BMI 35.3
--- NOTE | 2022-10-28 07:12 | ECHO ---
HEIGHT: 5 ft 4 in WEIGHT: 205 lb 14.588 oz DATE OF STUDY: 10/27/[address]: Dar Ulloa MD 2-DIMENSIONAL: YES M.MODE: YES DOPPLER: YES COLOR FLOW: YES TDS: PORTABLE: YES DEFINITY: BUBBLE STUDY: DIAGNOSIS: CHEST PAIN CARDIAC HISTORY: CATHERIZATION: NO SURGERY: NO PROSTHETIC VALVE: NO PACEMAKER: NO MEASUREMENTS (cm) DIASTOLIC (NORMALS) SYSTOLIC (NORMALS) IVSd 1.1 (0.6-1.2) LA Diam 2.6 (1.9-4.0) LVEF 65% LVIDd 4.2 (3.5-5.7) LVIDs 2.7 (2.0-3.5) %FS 36% LVPWd 1.2 (0.6-1.2) Ao Diam 2.9 (2.0-3.7) 2 DIMENSIONAL ASSESSMENT: RIGHT ATRIUM: NORMAL LEFT ATRIUM: NORMAL RIGHT VENTRICLE: NORMAL LEFT VENTRICLE: NORMAL TRICUSPID VALVE: NORMAL MITRAL VALVE: NORMAL PULMONIC VALVE: NORMAL AORTIC VALVE: NORMAL PERICARDIAL EFFUSION: NONE AORTIC ROOT: NORMAL LEFT VENTRICULAR WALL MOTION: NORMAL DOPPLER/COLOR FLOW: NORMAL COMMENTS: 1. NORMAL 2-DIMENSIONAL ECHOCARDIOGRAM WITH DOPPLER. TECHNOLOGIST: JOANNA ZUNIGA
[2022-10-28] MEDS ORDERED: REGADENOSON 0.4 MG/5 ML SYR IV ONE (07:35)
[2022-10-28] MEDS ORDERED: ASPIRIN 81 MG CHEWABLE TABLET ONE (08:54)
[2022-10-28] MEDS ORDERED: ENOXAPARIN 40 MG/0.4 ML SQ ONE (08:55)
[2022-10-28] MEDS: ENOXAPARIN 40 MG/0.4 ML SQ SCH (09:00)
[2022-10-28] MEDS: ASPIRIN EC 81 MG TAB PO SCH (09:00)
--- NOTE | 2022-10-28 10:37 | RAD REPORT ---
EXAM DESCRIPTION: NM - Rest Stress Cardiac Imaging - 10/28/2022 10:14 am CLINICAL HISTORY: Chest pain COMPARISON: None. TECHNIQUE: The patient was administered 9.6 mCi of Tc 99m Sestamibi prior to resting SPECT imaging o f the heart. The patient was then administered 29.1 mCi of Tc 99m Sestamibi following exercise or pha rmacologic stress. Multiplanar SPECT images were reviewed. FINDINGS: The end diastolic volume is 75 ml, the end systolic volume is 27 ml, and the ejection frac tion is 64 %. Moderate-sized focal defect is seen in the anterior wall near the apex on stress imaging with a moder ately large area of diminished stress activity in the inferior wall near the apex. Defects are genera lly matched on the rest sequencing. There may be some very minimal areas of frank-infarct ischemia. N o large areas of stress ischemia identifiable. IMPRESSION: Moderate-sized areas of scarring in the anterior and inferior wall near the apex. No large areas of stress ischemia seen. Minimal areas of frank-infarct ischemia cannot be excluded. End-diastolic volume and ejection fraction are normal range.
--- NOTE | 2022-10-28 14:38 | TREADPHA ---
DX: CHEST PAIN Date of Study: 10/28/2022 Ht: 5' 4 " Wt: 205 lb 14.588 oz Consulting Physician: KRISTIAN MEDICATIONS: ASPIRIN, LOVENOX HISTORY: 41 YEAR OLD FEMALE WITH COMPLIANTS OF CHEST PAIN. PATIENT STATES HISTORY OF HEART MURMUR. PATIENT STATES ALLERGY TO LATEX. PHYSICIAL EXAMINATION: RESTING B.P.: 128/70 RESTING H.R.: 82 RESTING EKG: NORMAL SINUS RHYTHM, WITHIN NORMAL LIMITS PROTOCOL: PHARMACOLOGIC EXERCISE TIME: 3:30 B.P. AT [place] STRESS: 197/65 IMPRESSION: LEXISCAN INJECTED. CARDIOLITE INJECTED. SEE NUCLEAR MEDICINE REPORT. PATIENT STATES SLIGHT HEAVINESS TO CHEST, SHORTNESS OF BREATH, AND DIZZINESS. PATIENT DENIES CHEST PAIN. NO SUPRAVENTRICULAR TACHYCARDIA, VENTRICULAR TACHYCARDIA, PREMATURE ATRIAL COMPLEXES, OR PREMATURE VENTRICULAR COMPLEXES NOTED. NO EKG CHANGES OF ISCHEMIA.
--- NOTE | 2022-10-28 23:55 | P.PN ---
Date of Service: 10/28/22 Subjective: chest pain continues, but with some improvement radiates to both arms at times ROS: A complete review of systems was performed and is negative except as mentioned above Physical Exam: Gen: NAD, AOx3 HEENT: normal conjunctiva, sclera anicteric CV: regular rate & rhythm, no edema Pulm: non-labored respirations, clear bilaterally Abd: soft, non-tender, non-distended MSK: mild discomfort reproducible using b/l pectoralis muscles Neuro: normal speech, normal affect, moves all extremities vitals reviewed Problem List Chest pain rule out ACS/PE GERD Hyperlipidemia trop negative x 3 echo normal cardiology consulted recommended stress test - done today - some areas of concern, most likely artifact, but patient has significant risk factors cardiology plans for cardiac cath tomorrow to further evaluate coronaries possibly MSK in origin, reproducible when flexing pectoralis muscles and palpation +family history of CAD aspirin, statin continue home protonix ekg without ischemic changes VTE: lovenox Code: full Dispo: home, tomorrow after cath Time Spent Managing Pts Care (In Minutes): 35
[2022-10-29] MEDS ORDERED: ATORVASTATIN 20 MG TAB ONE (00:45)
[2022-10-29] MEDS ORDERED: CYCLOBENZAPRINE 10 MG TAB ONE (00:45)
[2022-10-29] MEDS: CYCLOBENZAPRINE 10 MG TAB PO PRN (00:47)
[2022-10-29] MEDS: ATORVASTATIN 40 MG TAB PO SCH (00:48)
[2022-10-29 05:53] LABS: Potassium 3.9 mmol/L (3.5-5.1)
[2022-10-29] MEDS ORDERED: PANTOPRAZOLE 40MG TABLET PO ONE (06:14)
[2022-10-29] MEDS: PANTOPRAZOLE 40MG TABLET PO SCH (06:26)
[2022-10-29] MEDS: ENOXAPARIN 40 MG/0.4 ML SQ SCH (09:00)
[2022-10-29] MEDS: ASPIRIN EC 81 MG TAB PO SCH (09:00)
[2022-10-29] MEDS ORDERED: ASPIRIN EC 81 MG TAB PO ONE (09:15)
[2022-10-29] MEDS ORDERED: LIDOCAINE 1% 20 ML MDV ONE (10:36)
[2022-10-29] MEDS ORDERED: FENTANYL CITR 100 MCG/2 ML ONE (10:36)
[2022-10-29] MEDS ORDERED: HEPA 1000U/500MLS 2,000 UNIT/1,000 ML BAG IV ONE (10:36)
[2022-10-29] MEDS ORDERED: MIDAZOLAM HCL 2 MG/2 ML INJ ONE ×2 (10:37→12:41)
[2022-10-29] MEDS ORDERED: VERAPAMIL HCL 10 MG/4 ML VIAL IV ONE (10:37)
[2022-10-29] MEDS ORDERED: HEPARIN 5000 UNIT/ML 1 ML VIAL ONE (10:37)
[2022-10-29] MEDS ORDERED: CLOPIDOGREL 75 MG TABLET ONE (10:37)
[2022-10-29] MEDS ORDERED: HEPARIN 10,000 UNIT/10 ML VIAL IV ONE (10:37)
[2022-10-29] MEDS ORDERED: NITROGLYCERIN 100 MCG/ML SYR (for cath lab use only) IV ONE (10:38)
[2022-10-29] MEDS ORDERED: ATROPINE SULF 1 MG/10 ML SYR IV ONE (10:38)
[2022-10-29] MEDS ORDERED: NITROGLYCERIN/D5W 25 MG/250 ML BTL IV ONE (10:38)
[2022-10-29] MEDS ORDERED: TICAGRELOR 90 MG TABLET PO ONE (10:38)
[2022-10-29] MEDS ORDERED: NA CHLORIDE 0.9% 500 ML ONE (10:39)
[2022-10-29 16:45] VITALS: BP 128/94; TEMP 98
[2022-10-29 18:13] VITALS: O2SAT 99
--- NOTE | 2022-10-29 18:45 | OP ---
Date of Procedure: 10/29/2022 Surgeon: NADEEM NIEVES Procedures Performed: 1.Selective coronary angiogram. 2.Left heart catheterization. Indication: Unstable angina. Access: Right radial artery 6-Turkish closed with TR band. Complications: None. Estimated Blood Loss: Bleeding less than 10 mL. Anesthesia: Total sedation time was 20 minutes, used fentanyl and Versed. Description Of Procedure: After risks, benefits, and alternatives were explained, patient agreed to proceed and signed informed consent. The patient was brought into the cardiac catheterization labora tory and prepped and draped in usual sterile fashion. Then, I accessed right radial artery using ped iatric micropuncture kit and placed 6-Turkish Slender sheath and took 5-Turkish [place] 4 catheter into t he aortic root, engaged left main and right coronary artery, took standard views and the catheter was pushed over the wire into the LV, measured the LVEDP and pullback did not record any gradient. I th en removed the catheter and sheath and placed TR band with good hemostasis. Findings: 1.Left main is large and normal. 2.LAD: Moderate size and normal. Normal diagonal branches. 3.Left circumflex is normal and normal OM branches. 4.RCA has dominant circulation and normal. 5.Normal LVEDP between 5 and 10 mmHg. Conclusion: 1.Normal coronary arteries. 2.Normal LVEDP. Recommendations: Search for other causes of chest pain. SR/MODL Voice ID: [id number] Report ID: [id number]
--- NOTE | 2022-10-29 21:48 | PN ---
Date of Progress Note: 10/29/2022 Subjective: Seen at bedside, doing clinically well. Continues to have on and off chest pain with mi nimal exertion. Review of Systems: No nausea, vomiting, or diarrhea. She is having chest pain with activities. No dysuria, polyuria, o r urinary urgency. No skin rash. All other systems reviewed and they were negative. Physical Examination: Vital Signs: Reviewed. Head and Neck: Pupils are equal and reactive to light. Intact eye movements. No JVD. No cervical lymphadenopathy. Neck: Supple. Thyroid is not enlarged. Lungs: Clear to auscultation bilaterally. No rhonchi, wheezing, or crackles. No accessory muscle u se. Heart: Regular rate and rhythm. No extra sounds. Abdomen: Soft, nontender. Bowel sounds positive. No organomegaly. No masses or hernia. No rigidi ty or rebound. Extremities: No edema, clubbing, or cyanosis. Intact pulses. Skin: No rash. Neurologic: Alert, awake, and oriented x3. No acute focal deficits appreciated. Lymph Nodes: No cervical or axillary lymphadenopathy. Investigations: D-dimer was 914. CTA of the chest was negative for pulmonary embolism and coronary angiogram was totally normal. Assessment And Recommendations: Chest pain. CTA is negative for pulmonary embolism and coronary ang iogram was done today and she had normal coronary arteries. Her chest pain is not cardiac. This cou ld be related to the GI tract or chest wall muscles. No further cardiac workup is recommended and Cardiology will sign off on the case. The patient can be followed as an ou tpatient basis. SR/MODL Voice ID: [id number] Report ID: [id number]
--- NOTE | 2022-10-30 23:23 | CON ---
Date of Consultation: 10/27/2022 Reason For Consultation: Chest pain. History Of Present Illness: Ms. Viera is 41 and has a history of asthma, ADD, and gastroesophageal reflux disease. She has a very strong positive family history in her father and grandfather. She c lorenzo in with chest pain, substernal, radiating to the left shoulder with some nausea. No diaphoresis, PND, shortness of breath, palpitations, or syncope. The D-dimer was 114. Troponin was negative. Allergies: LATEX. Review of Systems: Negative. Social History: Negative. She sees Dr. Don. Family History: Very strongly positive for CAD in her dad and grandfather. Medications: At home include Singulair, Vyvanse, and Protonix. Physical Examination: Vital Signs: Stable, afebrile. HEENT: Negative. Neck: Supple with no bruit. Chest: Clear to auscultation and percussion. Cardiac: Regular rhythm and rate. No murmurs, gallops, or rubs. Abdomen: Benign. Extremities: No clubbing, cyanosis, or edema. Diagnostic Data: Chest x-ray is negative EKG is negative. D-dimer is . Troponin is negat elvis. Impression And Plan: This is a patient with many risk factors for coronary artery disease with stron g family history of heart disease and symptoms that are suggestive of coronary artery disease. Echoc ardiogram is pending. Lexiscan is pending. We will see what those show before making any further de cisions. Continue present regimen for now. KAJAL/OCLIN Voice ID: [id number] Report ID: [id number]
== END 2022-10-29 17:20 | disposition home or self-care (01) ==
LOC: ER 20:30 → ERHOLD 22:44 → 2ND 10-29 11:55
PROVIDERS: ADMIT Hospitalist; ATTEND Hospitalist
PROC: 4A023N7 Measurement of Cardiac Sampling and Pressure, Left Heart, Percutaneous Approach (ICD-10-PCS; principal; 2022-10-29)
PROC: B2011ZZ Plain Radiography of Multiple Coronary Arteries using Low Osmolar Contrast (ICD-10-PCS; 2022-10-29)
PROC: B2051ZZ Plain Radiography of Left Heart using Low Osmolar Contrast (ICD-10-PCS; 2022-10-29)
DX: R07.89 Other chest pain (principal); R00.0 Tachycardia, unspecified; E87.6 Hypokalemia; K21.9 Gastro-esophageal reflux disease without esophagitis; J45.909 Unspecified asthma, uncomplicated; E78.5 Hyperlipidemia, unspecified; F98.8 Other specified behavioral and emotional disorders with onset usually occurring in childhood and adolescence; Z79.899 Other long term (current) drug therapy; Z91.040 Latex allergy status; Z82.49 Family history of ischemic heart disease and other diseases of the circulatory system
CPT/HCPCS: 36415; 71045; 71275; 76937; 78452; 80048; 80053; 80061; 81003; 81025; 83880; 84439; 84443; 84484; 85025; 85379; 87811; 90471; 93005; 93017; 93306; 93458; 93970; 96361; 96372; 96374; 96375; 99285; A9500; C1893; G0378; J0461; J1644; J1650; J2250; J2405; J2785; J3010; J7030; J7040; Q2035; Q9966; Q9967

== ENCOUNTER → 2024-02-10 | Emergency (ER) | payer BC ==
[~2024-02-10] MED LIST: AMOX/K CLAV 875 MG TAB ONE; DICYCLOMINE HCL 10 MG CAP ONE; FAMOTIDINE 20 MG/2 ML VIAL IV ONE; KETOROLAC 30 MG/ML INJ ONE; NA CHLORIDE 0.9% 1,000 ML ONE; ONDANSETRON 4 MG/2 ML VIAL ONE; SMZ./TMP. 800/160 MG TABLET ONE
[2024-02-10 13:26] LABS: Absolute Basophils 0.1 K/uL (0-0.5); Absolute Lymphocytes (CBC) 1.9 K/uL (0.7-4.9); Absolute Monocytes 0.4 K/uL (0.1-1.3); Absolute Neutrophil 10.5 K/uL (1.8-8.0); Basophils % 0.5 % (0-1.3); Eosinophils % 0.2 % (0-4.4); Hematocrit 40.7 % (36.0-45.0); Hemoglobin 13.6 g/dL (12.0-15.0); Lymphocytes % 14.9 % (15.3-44.8); MCHC 33.4 g/dL (32.0-36.0); MCV 86.9 fL (80-100); MPV 7.2 fL (7.6-11.3); Monocytes % 2.8 % (3.3-12.3); Neutrophils % 81.6 % (41.7-73.7); Nucleated Red Blood Cells % 0.1 % (0-0); Platelets 381 thou/uL (152-406); RBC Red Blood Cell Count 4.69 M/uL (3.86-4.86); Red Cell Distribution Width 13.2 % (12.1-15.2)
[2024-02-10 13:36] LABS: Specific Gravity 1.016 (1.005-1.030)
[2024-02-10 13:38] LABS: Specific Gravity 1.016 (1.005-1.030); Sqamous Epithelial <5 /HPF (None Seen); Urine Bacteria None Seen /HPF (<20); Urine Bilirubin NEGATIVE (Negative); Urine Blood Trace (Negative); Urine Clarity Turbid (Clear); Urine Color Light-Yellow (Yellow); Urine Culture Reflex Order NOT NEEDED; Urine Glucose NEGATIVE (Negative); Urine Ketones NEGATIVE (Negative); Urine Microscopic Reflex YN ORDER UMIC; Urine Mucus Slight /HPF (None Seen); Urine Nitrite NEGATIVE (Negative); Urine Protein NEGATIVE (Negative); Urine RBC <5 /HPF (None Seen); Urine Urobilinogen Normal (Normal)
[2024-02-10 13:42] LABS: Albumin 3.3 g/dL (3.4-5.0); Albumin/Globulin Ratio 0.8 (1.1-1.8); Anion Gap 9.1 mEq/L (5.0-15.0); Bilirubin Total 0.5 mg/dL (0.2-1.0); Globulin 3.9 g/dL (2.3-3.5); Potassium 4.1 mEq/L (3.5-5.1); Protein, Total 7.2 g/dL (6.4-8.2)
--- NOTE | 2024-02-10 13:54 | RAD REPORT ---
EXAM DESCRIPTION: US - Abdomen Exam Limited - 02/10/2024 1:47 pm CLINICAL HISTORY: ABD PAIN COMPARISON: ABDOMINAL EXAM COMPLETE dated 09/26/2007 FINDINGS: The gallbladder demonstrates no gallstones. No pericholecystic fluid or gallbladder wall t hickening. The common bile duct is normal measuring 3 mm. The liver demonstrates no findings of intrahepatic biliary dilatation. IMPRESSION: Unremarkable examination.
--- NOTE | 2024-02-10 14:27 | RAD REPORT ---
EXAM DESCRIPTION: CTAbdomen Pelvis W Contrast - 02/10/2024 2:13 pm CLINICAL HISTORY: Abdominal pain. ABD PAIN COMPARISON: No comparisons TECHNIQUE: Biphasic CT imaging of the abdomen and pelvis was performed with 100 ml non-ionic IV cont rast. All CT scans are performed using dose optimization technique as appropriate and may include automated exposure control or mA/KV adjustment according to patient size. FINDINGS: The lung bases are clear. The liver, spleen, pancreas, adrenal glands and kidneys are within normal limits. Multiple parapelvic renal cysts bilaterally. No bowel obstruction, free air, or abscess. Multiple mildly dilated, thickened and inflamed small bow el loops are present in the left abdomen with mild free fluid in the abdomen and pelvis. No pneumatos is. The appendix is normal. No evidence of significant lymphadenopathy. No suspicious bony findings. IMPRESSION: Multiple mildly dilated, thickened and inflamed small bowel loops in the left abdomen garcia ggests nonspecific enteritis. This may be related to infectious etiology or inflammatory bowel diseas e. Mild free fluid in the abdomen and pelvis without abscess or free air.
--- NOTE | 2024-02-10 14:37 | ER ---
Nurse's Notes [facility] Name: Fariba Viera Age: 43 yrs Sex: Female : 1980 Arrival Date: 02/10/2024 Time: 12:57 Bed 11 Private MD: Yara Garcia Diagnosis: Enteritis Presentation: 02/09 13:06 Chief complaint: Patient states: mid abd pain X 2 days ago , worse this morning, no iw vomiting or diarrhea. Coronavirus screen: At this time, the client does not indicate any symptoms associated with coronavirus-19. Ebola Screen: Patient negative for fever greater than or equal to 101.5 degrees Fahrenheit, and additional compatible Ebola Virus Disease symptoms Patient denies exposure to infectious person. Patient denies travel to an Ebola-affected area in the 21 days before illness onset. No symptoms or risks identified at this time. Initial Sepsis Screen: Does the patient meet any 2 criteria? No. Patient's initial sepsis screen is negative. Does the patient have a suspected source of infection? No. Patient's initial sepsis screen is negative. Risk Assessment: Do you want to hurt yourself or someone else? Patient reports no desire to harm self or others. Onset of symptoms was February 08, 2024. 13:06 Method Of Arrival: Ambulatory iw 13:06 Acuity: SONY 3 iw MANAGER REPORTING: 13:10 LMP 02/03/2024, unknown iw Historical: - Allergies: 13:07 Latex; iw - PMHx: 13:07 GERD; heart murmur during ; iw - Immunization history:: Adult Immunizations up to date. - Social history:: Smoking status: Patient denies any tobacco usage or history of. Screenin:00 [facility] ED Fall Risk Assessment (Adult) History of falling in the last 3 months, ko1 including since admission No falls in past 3 months (0 pts) Confusion or Disorientation No (0 pts) Intoxicated or Sedated No (0 pts) Impaired Gait No (0 pts) Mobility Assist Device Used No (0 pt) Altered Elimination No (0 pt) Score/Fall Risk Level 0 - 2 = Low Risk Oriented to surroundings, Maintained a safe environment, Educated pt \T\ family on fall prevention, incl call for assistance when getting out of bed, Assessed \T\ reinforced patient's understanding of fall precautions, Provided non-skid footwear, Hourly rounding (assess needs \T\ fall precautionary measures) done, Used ambulatory aids as needed (educated on \T\ assisted with), Used gait belt as appropriate. Abuse screen: Denies threats or abuse. Denies injuries from another. Nutritional screening: No deficits noted. Tuberculosis screening: No symptoms or risk factors identified. Assessment: 14:00 General: Appears uncomfortable, ill, Behavior is calm, cooperative, appropriate for ko1 age. Pain: Complains of pain in epigastric area. Neuro: No deficits noted. Cardiovascular: No deficits noted. Respiratory: No deficits noted. GI: Bowel sounds present X 4 quads. Abd is soft and non tender X 4 quads. Reports upper abdominal pain, nausea. : No deficits noted. EENT: No deficits noted. Derm: No deficits noted. Musculoskeletal: No deficits noted. Vital Signs: 13:07 BP 120 / 86; Pulse 97; Resp 16; Temp 98.3(O); Pulse Ox 100% on R/A; Weight 112.49 kg; iw Height 5 ft. 4 in. ; Pain 10/10; 15:14 BP 118 / 84; Pulse 90; Resp 15; Pulse Ox 99% ; ko1 13:07 Body Mass Index 42.57 (112.49 kg, 162.56 cm) iw 13:07 Pain Scale: Adult iw ED Course: 13:00 Patient arrived in ED. mr 13:01 Anne Bobo FNP-C [facility] kb 13:01 Shin Escalante MD is Attending Physician. kb 13:01 Yara Garcia is Private Physician. mr 13:07 Triage completed. iw 13:09 Arm band placed on. iw 13:20 Initial lab(s) drawn, by me, sent to lab. Inserted saline lock: 22 gauge in right iw antecubital area, using aseptic technique. Blood collected. 13:48 Abdomen Limited US In Process Unspecified. EDMS 13:50 Maria Luz Anderson, AYLEEN is Primary Nurse. ko1 14:00 Patient has correct armband on for positive identification. Allergy band placed. Bed in ko1 low position. Call light in reach. Side rails up X 1. Provided Education on: na. Pulse ox on. NIBP on. Door closed. Noise minimized. Lights dimmed. Warm blanket given. 14:00 No provider procedures requiring assistance completed. ko1 14:15 CT Abd/Pelvis - IV Contrast Only In Process Unspecified. EDMS 15:14 IV discontinued, intact, bleeding controlled, No redness/swelling at site. Pressure ko1 dressing applied. Administered Medications: 13:59 Drug: NS 0.9% IV 1000 ml IV at 1 bolus Per protocol; 1000 mL bolus Route: IV; Rate: 1 ko1 bolus; Site: right antecubital; 15:16 Follow up: Response: No adverse reaction; IV Status: Completed infusion; IV Intake: ko1 1000ml 13:59 Drug: Famotidine IVP 20 mg IVP once; dilute with 10 mL 0.9% NaCl; give over 2 minutes ko1 Route: IVP; Site: right antecubital; 14:15 Follow up: Response: No adverse reaction ko1 13:59 Drug: TORadol - Ketorolac IVP 15 mg IVP once Route: IVP; Site: right antecubital; ko1 14:15 Follow up: Response: No adverse reaction ko1 13:59 Drug: Ondansetron IVP 4 mg IVP once; over 2 minutes Route: IVP; Site: right antecubital;ko1 14:15 Follow up: Response: No adverse reaction ko1 14:56 Drug: Dicyclomine PO 20 mg PO once Route: PO; ko1 15:17 Follow up: Response: No adverse reaction ko1 14:56 Drug: Amoxicillin-Clavulanate PO 875 mg PO once Route: PO; ko1 15:17 Follow up: Response: No adverse reaction ko1 Medication: 14:00 VIS not applicable for this client. ko1 Intake: 15:16 IV: 1000ml; Total: 1000ml. ko1 Outcome: 14:36 Discharge ordered by . roxann 15:14 Discharged to home ambulatory, with family, ko1 15:14 Condition: good 15:14 Discharge instructions given to patient, family, Instructed on discharge instructions, follow up and referral plans. medication usage, Demonstrated understanding of instructions, follow-up care, medications, Prescriptions given X 3, 15:17 Patient left the ED. ko1 Signatures: Dispatcher [employer] EDMS Anne Bobo, SEBASTIAN-Kyle ASSEMBLY DEPARTMENT SUPERVISOR-CkGypsy Bishop, Reg Reg mr Avelina Whitt RN RN iw Oliver, Kathy, RN RN ko1 Corrections: (The following items were deleted from the chart) 13:10 13:07 BP 120 / 86; Pulse 97bpm; Resp 16bpm; Pulse Ox 100% RA; 112.49 kg; Height 5 ft. 4 iw in.; BMI: 42.5; Pain 08/30, Adult; iw
--- NOTE | 2024-02-10 14:37 | EDPHYS ---
Physician Documentation [facility] Name: Fariba Viera Age: 43 yrs Sex: Female : 1980 Arrival Date: 02/10/2024 Time: 12:57 Bed 11 Private MD: Yara Garcia ED Physician Shin Escalante HPI: 02/09 13:10 This 43 yrs old Female presents to ER via Ambulatory with complaints of Abdominal Pain. kb 13:10 Pt is a 43 year old female who presents for epigastric pain that started as cramping 2 kb days ago and progressed last night. States it has been worse this morning. Reports nausea, but denies vomiting, diarrhea, fever. . LCSW: 13:10 LMP 02/03/2024, unknown iw Historical: - Allergies: 13:07 Latex; iw - PMHx: 13:07 GERD; heart murmur during ; iw - Immunization history:: Adult Immunizations up to date. - Social history:: Smoking status: Patient denies any tobacco usage or history of. ROS: 13:09 Constitutional: As per HPI kb Exam: 13:09 Head/Face: Normocephalic, atraumatic. ENT: Moist Mucous membranes Cardiovascular: kb Regular rate Respiratory: Respirations even and unlabored. No increased work of breathing. Talking in full sentences Skin: Warm, dry with normal turgor. Normal color. MS/ Extremity: Pulses equal, no cyanosis. Neurovascular intact. Full, normal range of motion. Neuro: Awake and alert, GCS 15, oriented to person, place, time, and situation. Moves all extremities. Normal gait. 13:09 Constitutional: The patient appears alert, awake, uncomfortable, 13:09 Abdomen/GI: Inspection: obese Bowel sounds: normal, Palpation: soft, in all quadrants, mild abdominal tenderness, in the epigastric area, Vital Signs: 13:07 BP 120 / 86; Pulse 97; Resp 16; Temp 98.3(O); Pulse Ox 100% on R/A; Weight 112.49 kg; iw Height 5 ft. 4 in. ; Pain 10/10; 15:14 BP 118 / 84; Pulse 90; Resp 15; Pulse Ox 99% ; ko1 13:07 Body Mass Index 42.57 (112.49 kg, 162.56 cm) iw 13:07 Pain Scale: Adult iw MDM: 13:01 Patient medically screened. kb 13:09 Differential diagnosis: cholecystitis, Cholelithiasis, gastritis, non-specific abd kb pain, pancreatitis, Peptic Ulcer Disease. Data reviewed: vital signs, nurses notes. 14:34 Counseling: I had a detailed discussion with the patient and/or guardian regarding the kb historical points, exam findings, and any diagnostic results supporting the discharge/admit diagnosis, lab results, radiology results, the need for outpatient follow up, a family practitioner, a gas generator operator, to return to the emergency department if symptoms worsen or persist or if there are any questions or concerns that arise at home. 02/09 13:09 Order name: CBC with Diff; Complete Time: 13:28 kb 02/09 13:09 Order name: CMP; Complete Time: 13:43 kb 02/09 13:09 Order name: Lipase; Complete Time: 13:43 kb 02/09 13:09 Order name: Test, Urine; Complete Time: 13:40 kb 02/09 13:09 Order name: Urinalysis w/ reflexes; Complete Time: 13:40 kb 02/09 13:09 Order name: Abdomen Limited US; Complete Time: 14:00 kb 02/09 14:00 Order name: CT Abd/Pelvis - IV Contrast Only; Complete Time: 14:29 kb 02/09 13:09 Order name: IV Saline Lock; Complete Time: 13:17 kb 02/09 13:09 Order name: Labs collected and sent; Complete Time: 13:17 kb Administered Medications: 13:59 Drug: NS 0.9% IV 1000 ml IV at 1 bolus Per protocol; 1000 mL bolus Route: IV; Rate: 1 ko1 bolus; Site: right antecubital; 15:16 Follow up: Response: No adverse reaction; IV Status: Completed infusion; IV Intake: ko1 1000ml 13:59 Drug: Famotidine IVP 20 mg IVP once; dilute with 10 mL 0.9% NaCl; give over 2 minutes ko1 Route: IVP; Site: right antecubital; 14:15 Follow up: Response: No adverse reaction ko1 13:59 Drug: TORadol - Ketorolac IVP 15 mg IVP once Route: IVP; Site: right antecubital; ko1 14:15 Follow up: Response: No adverse reaction ko1 13:59 Drug: Ondansetron IVP 4 mg IVP once; over 2 minutes Route: IVP; Site: right antecubital;ko1 14:15 Follow up: Response: No adverse reaction ko1 14:56 Drug: Dicyclomine PO 20 mg PO once Route: PO; ko1 15:17 Follow up: Response: No adverse reaction ko1 14:56 Drug: Amoxicillin-Clavulanate PO 875 mg PO once Route: PO; ko1 15:17 Follow up: Response: No adverse reaction ko1 Disposition Summary: 02/10/24 14:36 Discharge Ordered Notes: Location: Home kb Condition: Stable kb Diagnosis - Enteritis kb Followup: kb - With: Emergency Department - When: As needed - Reason: Worsening of condition Followup: kb - With: Private Physician - When: 2 - 3 days - Reason: Recheck today's complaints, Continuance of care, Re-evaluation by your physician Discharge Instructions: - Discharge Summary Sheet kb - Abdominal Pain, Adult, [id number] kb Forms: - Medication Reconciliation Form kb - Thank You Letter kb - Antibiotic Education kb - Prescription Opioid Use kb - Patient Portal Instructions kb - Leadership Thank You Letter kb Prescriptions: - Augmentin 875-125 mg Oral Tablet - take 1 tablet ORAL route every 12 hours for 10 days; 20 tablet; Refills: 0, kb Product Selection Permitted - Zofran 4 mg Oral tablet - take 1 tablet ORAL route every 6 hours As needed; 20 tablet; Refills: 0, kb Product Selection Permitted - dicyclomine 20 mg Oral tablet - take 1 tablet ORAL route 4 times per day; 20 tablet; Refills: 0, Product kb Selection Permitted Signatures: Dispatcher [employer] Anne Hu, SEBASTIAN-C SKIAGRAPHER-Avelina Jefferson, RN RN Maria Luz Allison RN RN ko1
[2024-02-10 16:02] VITALS: BP 118/84; TEMP 98.3; O2SAT 99
== END ==
LOC: ER 12:57
DX: K52.9 Noninfective gastroenteritis and colitis, unspecified (principal); Z91.040 Latex allergy status
CPT/HCPCS: 96361; 85025; 81001; 36415; 81025; 83690; 80053; 74177; 76705; 96375; 96374; 99284; Q9967; J2405; J7030